=== PATIENT | female | born 1970 | race Caucasian/White ===

== ENCOUNTER 2017-03-12 11:56 | Emergency (ER) | payer OTHER ==
--- NOTE | 2017-03-12 12:17 | PDOC ---
History of Present Illness - History of Present Illness Initial Comments: 03/12/17 12:55 The patient is a 46 year old female, with a significant past medical history of possible anxiety/depression, who presents to the emergency department with two weeks of heart palpitations, chest burning, difficulty sleeping, decreased appetite, and frequent crying which has increased today and also resulted in the patient feeling generally weak. The patient states that she has been experiencing palpitations, especially at night, which makes it difficult for her to sleep at night. She reports she has no appetite and has barely eaten during the two weeks of her symptoms. She reports being seen at a clinic for her symptoms a week ago, where she obtained a prescription for melatonin and buproprion. She reports starting these medications 4 days ago and states they have offered minimal relief for her symptoms. She states she only sleeps about 30 minutes after taking the melatonin before she is woken up by her palpitations.Patient states her crying is prompted by multiple factors, no particular stressor. She has no suicidal ideations or attempts or plan, has no hallucinations. No personal history of requiring antidepressants, but her grandmother suffered from severe depression. She states she is currently looking for a psychiatrist who speaks primarily tajik. She denies chest pain, shortness of breath, headache and dizziness. She denies fever, chills, nausea, vomit, diarrhea and constipation. She denies dysuria, frequency, urgency and hematuria. Allergies: NKDA <Linda Dudley - Last Filed: 03/12/17 12:55> <Raheem Jones - Last Filed: 03/12/17 13:59> - General Chief Complaint: Depression Stated Complaint: NEAR SYNCOPE/SYNCOPE Time Seen by Provider: 03/12/17 12:16 Past History <Linda Dudley - Last Filed: 03/12/17 12:55> <Raheem Jones - Last Filed: 03/12/17 13:59> - Past Medical History Allergies/Adverse Reactions: Allergies Allergy/AdvReac Type Severity Reaction Status Date / Time No Known Allergies Allergy Unverified 03/12/17 12:30 Home Medications: Ambulatory Orders Alprazolam [Xanax] 0.25 mg PO BID PRN #10 tablet MDD 2 03/12/17 Buspirone HCl [Buspar -] 7.5 mg PO BID 03/12/17 Melatonin 5 mg PO HS 03/12/17 Review of Systems - Review of Systems Able to Perform ROS?: Yes <Linda Dudley - Last Filed: 03/12/17 12:55> - Review of Systems Constitutional: No: Chills, Fever HEENTM: No: Nose Congestion Respiratory: No: Cough, Shortness of Breath, SOB with Exertion Cardiac (ROS): Yes: Chest Pain, Lightheadedness, Palpitations. No: Edema, Syncope ABD/GI: Yes: Poor Appetite. No: Diarrhea, Nausea, Vomiting Neurological: No: Headache Psychiatric: Yes: Anxiety, Depression All Other Systems: Reviewed and Negative <Raheem Jones - Last Filed: 03/12/17 13:59> *Physical Exam - Vital Signs Last Vital Signs Temp Pulse Resp BP Pulse Ox 98 F 62 18 128/81 100 03/12/17 12:20 03/12/17 12:20 03/12/17 12:20 03/12/17 12:20 03/12/17 12:20 - Physical Exam Comments: 03/12/17 12:55 GENERAL: The patient is awake, alert, and fully oriented, in no acute distress. HEAD: Normal with no signs of trauma. EYES: Pupils equal, round and reactive to light, extraocular movements intact, sclera anicteric, conjunctiva clear with no pallor. ENT: Ears normal, nares patent, oropharynx clear without exudates. Moist mucous membranes. NECK: Normal range of motion, supple without lymphadenopathy, JVD, or masses. LUNGS: Breath sounds equal, clear to auscultation bilaterally. No wheeze/ crackles. HEART: Regular rate and rhythm, normal S1 and S2 without murmur or rub. ABDOMEN: Soft/nontender/nondistended. BS wnl. No guarding or rebound. No palpable masses. No hepatosplenomegaly. EXTREMITIES: Normal range of motion, no edema. No clubbing or cyanosis. No cords, erythema, or tenderness. NEUROLOGICAL: Cranial nerves II through XII grossly intact. Normal speech, normal gait. PSYCH: Normal mood, normal affect. SKIN: Warm, Dry, normal turgor, no rashes or lesions noted. <Linda Dudley - Last Filed: 03/12/17 12:55> Heart Score/ECG Review #1 ECG reviewed & interpreted by me at: 12:38 General ECG Interpretation: Sinus Rhythm, Normal Rate (62), Normal Intervals ( qtc 418), No acute ischemic changes <Raheem Jones - Last Filed: 03/12/17 13:59> ED Treatment Course - LABORATORY CBC & Chemistry Diagram: 03/12/17 12:48 03/12/17 12:48 - Medications Given in the ED: ED Medications Discontinued Medications Generic Name Dose Route Start Last Admin Trade Name Jaron PRN Reason Stop Dose Admin Alprazolam 0.25 mg 03/12/17 12:28 03/12/17 12:49 Xanax - PO 03/12/17 12:29 0.25 mg ONCE ONE Administration <Linda Dudley - Last Filed: 03/12/17 12:55> - LABORATORY CBC & Chemistry Diagram: 03/12/17 12:48 03/12/17 12:48 <Raheem Jones - Last Filed: 03/12/17 13:59> Medical Decision Making - Medical Decision Making 03/12/17 12:31 A portion of this note was documented by scribe services under my direction. I have reviewed the details of the note, within reason, and agree with the documentation with the following case summary and management plan written by me. 46-year-old female with no severe past medical history other than possible anxiety presents with multiple complaints over the last 2 weeks. Patient reporting generalized symptoms of crying often, having anxiety with palpitations that make it difficult to sleep, decreased appetite with decreased by mouth intake, and generalized weakness as result. No localizing guarding or pulmonary complaints, no exertional limitations, no infectious complaints. Patient states her crying is prompted by multiple factors, no particular stressor. She has no suicidal ideations or attempts or plan, has no hallucinations. No personal history of requiring antidepressants, but her grandmother suffered from severe depression. The patient was seen by her clinic and started on bupropion 4 days ago with only slight relief, she has been taking melatonin to sleep with minimal relief. No acute complaints today, presents with her sister and children. Vital signs normal. Seated in stretcher, slightly flat affect but not tearful at the moment. Appropriate, answering questions and compliant. Exam is normal as noted 46-year-old female with likely depression/anxiety syndrome, no acute psychiatric issues of ideations or hallucinations. Will rule out underlying cardiopulmonary process given the palpitations, but this is more likely related to her depression/anxiety and would otherwise be atypical for ACS. Will check labs and EKG Will give IV fluids and trial of anxiolytic No indication for emergent psychiatric consultation for admission at this time, we'll reassess. 03/12/17 13:47 labs wnl including troponin, EKG normal. Feels MUCH better after xanax, states that has helped her more than anything else and she feels well. While bupropion taking effect, will rx short course of xanax, aware of precautions. Family at bedside, all agree with d/c plan at this time to continue bupropion, f /u with psychiatrist. They understand return criteria. <Raheem Jones - Last Filed: 03/12/17 13:59> *DC/Admit/Observation/Transfer - Attestations Scribe Attestion: 03/12/17 12:55 Documentation prepared by Linda Dudley, acting as senior medical billing specialist for Raheem Jones MD, <Linda Dudley - Last Filed: 03/12/17 12:55> <Raheem Jones - Last Filed: 03/12/17 13:59> Diagnosis at time of Disposition: Depression with anxiety - Discharge Dispostion Disposition: HOME Condition at time of disposition: Improved - Prescriptions Prescriptions: Alprazolam [Xanax] 0.25 mg PO BID PRN #10 tablet MDD 2 PRN Reason: Anxiety - Referrals Referrals: Armand Mehta [Primary Care Provider] - - Patient Instructions Printed Discharge Instructions: DI for Depression -- Adult, DI for Anxiety -- Adult Additional Instructions: Activity as tolerated. Stay hydrated. Blood tests and an EKG today showed no acute abnormalities. Your symptoms are consistent with depression/anxiety. Continue Bupropion as previously prescribed, but you can take Xanax as prescribed as needed for acute anxiety. Xanax can make you light-headed, so take proper precautions. You can take 2 Xanax pills AT NIGHT IF NEEDED. Continue your medications as previously prescribed by your physician. You should follow up with your primary doctor and psychiatrist as soon as possible regarding today's emergency department visit. Return to the emergency department for any new or concerning symptoms, particularly worsening anxiety/depression, thoughts of hurting yourself or others, chest pain or trouble breathing. Print Language: CZECH
[2017-03-12] MEDS ORDERED: SODIUM CHLORIDE 1,000 ML IV ONE (12:28)
[2017-03-12] MEDS ORDERED: ALPRAZolam 0.25 MG TABLET PO ONE (12:28)
[2017-03-12 12:38] VITALS: TEMP 98; BMI 26.5
[2017-03-12 12:56] LABS: BASOPHIL 0.7 % (0-2.0); EOSINOPHIL 15.7 % (0-4.5); MCH 29.1 pg (25.7-33.7); MCHC 33.1 g/dl (32.0-36.0); MEAN CELL VOLUME 87.9 fl (80-96); MEAN PLT VOLUME 8.6 fl (7.5-11.1); NEUTROPHILS 56.5 % (42.8-82.8); PLATELET COUNT 283 K/MM3 (134-434); RDW 13.1 % (11.6-15.6); WHITE BLOOD COUNT 7.5 K/mm3 (4.0-10.0)
[2017-03-12 13:29] LABS: ANION GAP 7 (8-16); BILIRUBIN,TOTAL 0.3 mg/dL (0.2-1.0); CALCIUM 9.8 mg/dL (8.5-10.1); CO2 28 mmol/L (21-32); CREATININE 0.7 mg/dL (0.55-1.02); GLUCOSE,RANDOM 93 mg/dL (74-106); MAGNESIUM 2.3 mg/dL (1.8-2.4); SGOT/AST 17 U/L (15-37); SGPT/ALT 22 U/L (12-78); TOT PROT 7.5 g/dl (6.4-8.2)
[2017-03-12 13:37] LABS: ALK PHOS 101 U/L (45-117); THYROID STIMULATING HORMONE 1.08 uIU/ml (0.358-3.74); TROPONIN I < 0.02 ng/ml (0.00-0.05)
[2017-03-12 13:53] VITALS: BP 118/82; PULSE 78
--- NOTE | 2017-03-13 21:19 | EKG ---
Test Reason : Blood Pressure : / mmHG Vent. Rate : 062 BPM Atrial Rate : 062 BPM P-R Int : 142 ms QRS Dur : 090 ms QT Int : 412 ms P-R-T Axes : 048 062 049 degrees QTc Int : 418 ms NORMAL SINUS RHYTHM NORMAL ECG NO PREVIOUS ECGS AVAILABLE Confirmed by BIRGIT DICKERSON MD ([id number]) on 03/13/2017 9:19:06 PM Referred By: Confirmed By:BIRGIT DICKERSON MD
== END 2017-03-12 14:01 | disposition home or self-care (01) ==
LOC: JER 11:56
PROC: 3E0337Z Introduction of Electrolytic and Water Balance Substance into Peripheral Vein, Percutaneous Approach (ICD-10-PCS; principal; 2017-03-12)
DX: F41.8 Other specified anxiety disorders (principal)
CPT/HCPCS: 36415; 80053; 82550; 83735; 84443; 84484; 84703; 85025; 93005; 93010; 96360; 99284-25